=== PATIENT | male | born 1985 | race Caucasian/White ===

== ENCOUNTER 2018-09-17 07:42 | Outpatient (CLI) | payer OTHER ==
[2018-09-17 08:59] LABS: Bilirubin Negative (Negative); Blood, Urine Large (Negative); Clarity Clear (Clear); Glucose, Urine (Dipstick) Negative (Negative); Leukocyte Negative (Negative); Nitrite Negative (Negative); Protein, Urine (Dipstick) Negative (Neg-Trace); Specific Gravity, Urine 1.015 (1.005-1.030); Urobilinogen 0.2 mg/dL (0.2-1.0); pH, Urine 6.5 (5.0-9.0)
--- NOTE | 2018-09-17 09:06 | CT ---
ABDOMEN AND PELVIC CT SCAN WITH AND WITHOUT IV CONTRAST: DATE: 09/17/18 HISTORY: Gross hematuria. Blood in urine. FINDINGS: The lung bases are clear. Liver, gallbladder, pancreas, spleen, and adrenal glands are unremarkable. No renal calculus or acute obstruction. No solid or cystic renal mass. Urinary bladder appears unr emarkable although is not filled. No mass, abscess, adenopathy, or abnormal fluid collection, or othe r acute process. IMPRESSION: Unremarkable abdomen and pelvic CT scan. No significant acute abnormality. POS: [facility]
[2018-09-17 09:21] LABS: Bacteria/HPF None Seen HPF (None Seen); RBC/HPF 21-50 HPF (0-3); Squamous Epithelial 0-3 HPF (0-3); WBC/HPF 0-3 HPF (0-3)
== END 2018-09-17 07:43 | disposition home or self-care (01) ==
LOC: SCSCT 07:42
PROVIDERS: ATTEND Urology
DX: R31.0 Gross hematuria (principal); M54.5 Low back pain
CPT/HCPCS: 36415; 74178; 81001; 87086